=== PATIENT | female | born 1940 | race Caucasian/White ===

== ENCOUNTER → 2017-02-15 | Outpatient (CLI) | payer MEDICARE ==
[~2017-02-15] MED LIST: ARTHROTEC 751 TAB.E2 PO; ARTHROTEC 751 TAB.EC; ASCORBIC ACID; ASPIRIN PO; CALCIUM 500 + D1 TAB; CALCIUM 600+D T1 TA1 PO; CENTRUM SILVER PO; DITROPAN; ENABLEX7.5 MG PO; ESTRATEST H.S.1 TAB PO; EVISTA60 M1 PO; GLUCOSAMINE CHRON PO; HIGH POTENCY B1 TAB PO; HYZAAR 50-12.51 TAB PO; MULTI-VITAMIN1 TAB; OMEPRAZOLE40 MG PO; OXYBUTYNIN5 MG/BOTTL PO; PROBIOTIC1 EAC2 PO; REGLAN5 MG PO; SYNTHROID PO; VITAMIN B-6; VITEYES PO; ZOCOR PO
--- NOTE | ~2017-02-15 | US85 ---
[facility] A Service of [facility] & [facility] RADIOLOGY TEXT RESULTS PATIENT: REHAN HDZ LOCATION: CNIV : 44 UNIT #: [id number] AGE: [address]: Lisa Esparza APRN SEX: F ORDER DR: [id number] [facility] [address] [place], [place] [address] [id number] O MR#: [id number] Acc #: [id number] NAME: REHAN HDZ : 1940 SEX: F STUDY DATE/TIME: 02/15/2017 9:51 UNIT: CNIV ROOM: STUDY DESCRIPTION: [facility] Attending Physician: Lisa Esparza A.P.R.N. Referring Physician: Lisa Esparza A.P.R.N. Ordering Physician: Lisa Esparza A.P.R.N. Primary Care Physician: Lisa Esparza A.P.R.N. MEDICAL IMAGING REPORT This report is preliminary unless electronic signature is present EXAM Left lower extremity venous Doppler INDICATIONS Left lower extremity cramping and pain for the past 2 years. PROCEDURE Huddleston-scale, color Doppler, spectral imaging deep veins of the left leg. COMPARISON None FINDINGS Deep veins left leg compress normally, show normal color Doppler and spectral characteristics. IMPRESSION No evidence for DVT in the left leg. Dictated by... Abhishek Hays M.D. THIS IS AN ELECTRONICALLY VERIFIED REPORT Abhishek Hays M.D. at 02/16/2017 3:29 PM Darnell TD: 02/15/2017 10:40 JOB #: [id number] MEDICAL IMAGING REPORT Page 1 of 1 COPY
== END | disposition home or self-care (01) ==
LOC: CNIV 09:11
DX: G47.62 Sleep related leg cramps (principal); M79.605 Pain in left leg
CPT/HCPCS: 93971